=== PATIENT | female | born 1985 | race Caucasian/White ===

== ENCOUNTER 2019-08-07 21:44 | Emergency (ER) | payer MEDICAID ==
[~2019-08-07] VITALS: Ht 162.6 cm; Wt 108.9 kg
[2019-08-07 22:00] VITALS: Ht 162.6 cm; Wt 108.9 kg
[2019-08-07 22:56] LABS: BASOPHIL % 0.6 % (0-2); PLATELET COUNT 368 x10^3mcL (130-400); RED CELL DISTRIBUTION WIDTH 13.2 % (11.5-14.5)
[2019-08-07 23:04] LABS: CALCIUM 9.1 mg/dL (8.5-10.1); CARBON DIOXIDE 27.4 mmol/L (21-32); CHLORIDE SERUM 101 mmol/L (98-107); CREATININE SERUM 0.9 mg/dL (0.6-1.0); GFR1 > 60 mL/min; GLUCOSE SERUM 92 mg/dL (74-106); POTASSIUM SERUM 3.9 mmol/L (3.5-5.1); SODIUM SERUM 135 mmol/L (136-145)
[2019-08-07 23:09] LABS: ALBUMIN 3.7 g/dL (3.4-5.0); ALKALINE PHOSPHATASE 73 U/L (46-116); ALT/SGPT 21 U/L (14-59); AST/SGOT 14 U/L (15-37); BILIRUBIN TOTAL 0.26 mg/dL (0.20-1.00); TOTAL PROTEIN, SERUM 7.9 g/dL (6.4-8.2)
[2019-08-08 00:17] LABS: AMPHETAMINE QUAL UR NONE DETECTED (See below)
[2019-08-08 01:10] VITALS: BP 109/72
== END 2019-08-08 01:10 | disposition home or self-care (01) ==
LOC: ED 21:44
PROVIDERS: Emergency Medicine
DX: R55 Syncope and collapse (principal); R53.83 Other fatigue; R53.1 Weakness; R40.4 Transient alteration of awareness; J45.909 Unspecified asthma, uncomplicated
CPT/HCPCS: 36415; Q0092